=== PATIENT | female | born 1950 | race Caucasian/White ===

== ENCOUNTER 2024-10-09 06:30 | Emergency (ER) | payer MEDICARE, SELFPAY ==
[2024-10-09] VITALS (7 sets, daily range): BP systolic 167–196; BP diastolic 83–109; PULSE 75–115; RESP 18; TEMP 36.6; O2SAT 95–100; BMI 36.5
--- NOTE | 2024-10-09 07:26 | ED.EPISTAXIS ---
HPI - Epistaxis General Chief complaint: Nasal Problem Stated complaint: nose bleed x1 hour Time Seen by Provider: 10/09/24 06:40 Source: patient Mode of arrival: Ambulatory History of Present Illness HPI Narrative: Patient here for right nostril epistaxis. Awoke this morning with bloody nose. Patient is on Xarelto for atrial fibrillation. Never had problems with bleeding before. Patient states she did use Flonase spray yesterday due to allergies. This could been the reason why she has bleeding. Denies any other recent illness. She has had allergies and had runny nose. Otherwise no excessive sneezing. No trauma to the nose. No dizziness. Related Data Home Medications Medication Instructions Recorded Confirmed atenolol 25 mg tablet 25 mg PO DAILY 10/09/24 10/09/24 levothyroxine 125 mcg tablet 125 mcg PO DAILY 10/09/24 10/09/24 pravastatin 40 mg tablet 40 mg PO DAILY 10/09/24 10/09/24 rivaroxaban 20 mg tablet (Xarelto) 20 mg PO DAILY 10/09/24 10/09/24 Allergies Allergy/AdvReac Type Severity Reaction Status Date / Time clarithromycin [From Biaxin] Allergy Unknown Verified 10/09/24 06:40 erythromycin base Allergy Unknown Verified 10/09/24 06:40 iodine Allergy Unknown Verified 10/09/24 06:40 Review of Systems Review of Systems Narrative: GENERAL: Negative chills, fatigue, malaise, fever, sweats. HEENT: Negative sinus pain, ear pain, sore throat, positive epistaxis RESPIRATORY: Negative dyspnea, cough CARDIOVASCULAR: Negative chest pain, palpitations GASTROINTESTINAL: Negative vomiting, nausea, abdominal pain : Negative dysuria, frequency, hematuria MUSCULOSKELETAL: Negative muscle or bony pain SKIN: Negative rash, skin lesions NEUROLOGIC: Negative weakness, numbness ROS Unobtainable: All systems reviewed & are unremarkable except as noted in HPI and below Patient History Social History Smoking Status: Former smoker Smoking Status: Former smoker Exam Narrative Exam Narrative: GENERAL: in no distress, not toxic not dyspneic HEAD: Normocephalic. EYES: Pupils equal round ENT: Mucous membranes moist. Examination left nostril no bleeding or blood. Right nostril medial wall small punctate area of bleed but very very small. Trace amount of blood in posterior pharynx. EXTREMITIES: No gross deformities. NEURO: AOx4. Clear speech SKIN: Warm and dry PSYCH: Not anxious, is cooperative Initial Vital Signs Initial Vital Signs: Vital Signs Temperature 97.9 F 10/09/24 06:42 Pulse Rate 115 H 10/09/24 06:42 Respiratory Rate 18 10/09/24 06:42 Blood Pressure 196/109 H 10/09/24 06:42 Pulse Oximetry 99 10/09/24 06:42 Oxygen Delivery Method Room Air 10/09/24 06:42 Course Orders Ordered: Discontinued Medications Atenolol (Atenolol 25 Mg Tablet) 25 mg PO NOW ONE Stop: 10/09/24 08:09 Last Admin: 10/09/24 08:17 Dose: 25 mg Documented By: MARBELLA Oxymetazoline HCl (Oxymetazoline Nasal [place] 30 Ml) 2 sprays NASAL NOW ONE Stop: 10/09/24 07:26 Last Admin: 10/09/24 07:48 Dose: 2 sprays Documented By: CHANTE Vital Signs Vital signs: Vital Signs - 8 hr 10/09/24 06:42 10/09/24 07:24 10/09/24 07:30 Temperature 97.9 F Pulse Rate 115 H 83 Respiratory Rate 18 Blood Pressure 196/109 H 167/96 H Pulse Oximetry 99 100 Oxygen Delivery Method Room Air 10/09/24 07:30 10/09/24 08:00 10/09/24 08:00 Temperature Pulse Rate 83 83 Respiratory Rate Blood Pressure 171/83 H Pulse Oximetry 99 100 Oxygen Delivery Method 10/09/24 08:14 10/09/24 08:14 Temperature Pulse Rate 99 H Respiratory Rate Blood Pressure 171/89 H Pulse Oximetry 99 Oxygen Delivery Method MDM - Epistaxis MDM Narrative Medical decision making narrative: Patient here for right nostril epistaxis. Awoke this morning with bloody nose. Patient is on Xarelto for atrial fibrillation. Never had problems with bleeding before. Patient states she did use Flonase spray yesterday due to allergies. This could been the reason why she has bleeding. Denies any other recent illness. She has had allergies and had runny nose. Otherwise no excessive sneezing. No trauma to the nose. No dizziness. After history and exam, exam is reassuring. No blood work indicated this time. No history of thrombocytopenia or anemia. Afrin spray will be ordered, nasal clamp is slowing down bleeding. Blood pressure noted on arrival, has improved without intervention. Patient takes atenolol at night. Takes Xarelto at night. [facility] Medical records reviewed: No recent visit for this complaint Differential considered: Includes but not limited to epistaxis Consultations: None indicated this time Re-evaluations: 8:40 a.m.. Blood pressure has improved. Reviewed exam with patient. Gargle with water and no blood. No active bleeding. Instructions for Afrin and nasal clamp provided for patient. She is from out of town. She was up here recruiting for employees. She lives in [facility], she will follow up with the ENT doc when she returns back home, [facility] has providers there she states. Return precautions reviewed. Blood pressure has improved. Instructed patient to follow up with primary care for blood pressure re-evaluation as well. She understands not to take his Xarelto tonight or tomorrow night and will resume on Sunday. Discussion: Appropriate for discharge home. Exam is reassuring. Patient has no history of anemia or thrombocytopenia. Likely weather change in seasonal allergies and Neti pot and Flonase aggravated her nose this morning. She is from [place] of town. The dry air has been irritating to her as well. She has seasonal allergies. Return precautions reviewed. She desires discharge home. Atenolol was given here to reduce blood pressure to prevent rebleeding. Diagnosis: Epistaxis Discharge Plan Departure Patient Disposition: Home Clinical Impression: Epistaxis Instructions: DI for Nosebleed Activity Restrictions/Additional Instructions: Your exam is reassuring. No blood work was indicated today. You have been provided a nose clamp and Afrin. Should you bleed again, please spray Afrin, 2 sprays each nostril and apply the nasal clamp. Allow for 30 minutes for improvement if not better then please go to the ER. Please see your nose throat doctor when you return back to your home. You will need re-evaluation in a week. Please keep your home environment well humidified. Do not use Flonase or Neti potting as this boil agitate your nose. Please do not take your Xarelto tonight or tomorrow night, you may resume it on Sunday. Please have your blood pressure rechecked with your family doctor next week as well. Return if worse if any questions or concerns Prescriptions: No Action pravastatin 40 mg tablet 40 mg PO DAILY levothyroxine 125 mcg tablet 125 mcg PO DAILY Xarelto 20 mg tablet 20 mg PO DAILY atenolol 25 mg tablet 25 mg PO DAILY Stand Alone Forms: Patient Portal/API/Survey
[2024-10-09] MEDS: OXYMETAZOLINE NASAL SPRAY 30 ML 2 SPRAYS NASAL (07:48)
[2024-10-09] MEDS: atenoloL 25 MG TABLET PO (08:17)
== END 2024-10-09 08:46 | disposition home or self-care (01) ==
PROVIDERS: Emergency Provider Emergency Medicine
DX: R04.0 Epistaxis (principal); Z79.01 Long term (current) use of anticoagulants
CPT/HCPCS: 99283